=== PATIENT | male | born 1950 | race Caucasian/White ===

== ENCOUNTER → 2017-09-26 | Outpatient (CLI) | payer OTHER ==
--- NOTE | 2017-09-26 14:42 | RADRPT ---
EXAM DATE/TIME: 09/26/2017 13:01 [place] COMPARISON: No previous studies available for comparison. INDICATIONS : Tremors for 1 year. DOSE: 5.5 mCi Ioflupane Iodine-123 in 2.5 ml total volume MEDICATION(S): 130 mg Potasium Iodine PO one hour prior to injection SPECT IMAGIN hrs IMAGNG: SPECT/CT imaging with fusion was performed. RADIATION DOSE: 30.27 CTDIvol (mGy) MEDICAL HISTORY : Hypertension. SURGICAL HISTORY : None. ENCOUNTER: Initial ACUITY: 1 yr PAIN SCALE: 3/10 LOCATION: Head. TECHNIQUE: SPECT imaging of the brain was performed in sagittal, axial and coronal planes. Attenuation correctio n was performed with computed tomography and both the attenuation correction and non-attenuation luz ected data sets were reviewed. FINDINGS: There is abnormal biodistribution of radionuclide with asymmetric activity are in the striatum. There is decreased putaminal activity on the right and nearly absent activity on the left. CONCLUSION: Decreased radiotracer accumulation in the putaminal nuclei bilaterally characteristic of Parkinson's or atypical Parkinsonism syndrome. Jorge Luis Villeda MD on September 26, 2017 at 14:31 Board Certified Radiologist. This report was verified electronically.
== END ==
LOC: HRAD 07:42
DX: G21.9 Secondary parkinsonism, unspecified (principal)
CPT/HCPCS: 78607; A9584